=== PATIENT | female | born 1995 | race Caucasian/White ===

== ENCOUNTER 2017-02-04 | Inpatient (IN) | payer OTHER ==
--- NOTE | ~2017-02-04 | PA ---
Unit #: [id number] #: [id number] Patient: HAYDEE JENNINGS [id number] [facility] [address] [place] [address] [id number] I MR#: [id number] NAME: HAYDEE JENNINGS ROOM: P173 Age: 21 Sex: F Admission Date: 02/04/2017 : 1995 Date of Assessment: 02/04/2017 Attending Physician: Antonio Purdy M.D. Admitting Physician: Antonio Purdy M.D. Primary Care Physician: Primary Care Physician No PSYCHIATRIC ASSESSMENT INFORMANTS The patient reliability, fair; chart reliability, good. CHIEF COMPLAINT Suicidal ideation. Suicidal attempt by taking an overdose. HISTORY OF PRESENT ILLNESS Ms. Haydee Jennings is a 21-year-old morbidly obese, white female, seen on 02/04/2017. The patient presented by taking 20 to 30 Coreg 12.5 mg tablets in a suicide attempt. The patient reported that she is impulsive and has previous multiple attempts like this. The patient currently denied any suicidal or homicidal ideation. Able to contract for safety at this time. The patient reported that she was released yesterday from the hospital in [place] for suicidal ideation. The patient reported that she smokes a gram of cannabis. The patient reported the last use was a week ago. The patient denied any homicidal ideation, reported stressed about of her grandmother. The patient needed inpatient admission at this time for psychiatric stabilization. PAST PSYCHIATRIC HISTORY Remarkable for history of multiple admissions in the past for suicide attempt like this, [place], [place]; [facility]. FAMILY HISTORY AND SOCIAL HISTORY The patient has a good support system from a friend and family. No known history of any abuse. MEDICAL HISTORY Remarkable for history of obesity, atrial fibrillation, hypothyroidism, CHF, type 2 diabetes mellitus. Musculoskeletal; muscle strength and tone, no atrophy or abnormal movement. Gait, normal. MEDICATION HISTORY The patient is on Topamax 50 mg b.i.d., Neurontin 300 mg three times a day, Flexeril 10 mg three times a day, metformin 500 mg in the morning, Lovenox 40 mg in the morning, Haldol 10 mg b.i.d., Coreg 12.5 mg b.i.d., Depakote 500 mg b.i.d. ALLERGIES No known drug allergies. Unit #: [id number] #: [id number] Patient: HAYDEE JENNINGS SUBSTANCE ABUSE HISTORY Remarkable for history of tobacco use, age of onset 11; marijuana, age of onset 11. No history of blackout. No history of any HIV, hepatitis, withdrawal symptom or any IV drug use. REVIEW OF SYSTEMS HEENT: Eyes, clear. Ears, nose, mouth, and throat; clear. CARDIOVASCULAR: Unremarkable. RESPIRATORY: Unremarkable. GI: Unremarkable. : Unremarkable. SKIN: Unremarkable. LYMPH NODE: Unremarkable. NEUROLOGIC: Unremarkable. ENDOCRINE: Unremarkable. HEMATOLOGIC: Unremarkable. ALLERGIC/IMMUNOLOGIC: Unremarkable. MUSCULOSKELETAL: Muscle strength and tone, no atrophy or abnormal movement. Gait normal. MENTAL STATUS EXAMINATION CONSTITUTIONAL: Measurement of vital signs; temperature 97.9, heart rate 84, respiratory rate 17, and blood pressure 110/64. Height 5 feet 8 inches, weight 339 pounds. GENERAL APPEARANCE: The patient dressed casually. The patient did not show any facial deformity except morbid obesity. MUSCULOSKELETAL: Please see above. PSYCHIATRIC EXAMINATION Description of speech; regular rate, normal volume, normal articulation, coherent, and spontaneous. Description of thought process, goal directed. Description of association, intact. Description of abnormal psychotic thinking; the patient denied any hallucination or delusions, but mood lability. The patient is able to contract for safety at this time. Denied any suicidal or homicidal ideation at this time. Description of the patient's judgment, concerning everyday activity, poor; social situation, poor; concerning psychiatric condition, poor. Complete mental status examination; oriented in time, place, and person. Recent and remote memory, fair. Attention and concentration, fair. Language, able to name object and repeat phrases. Fund of knowledge, aware of current event and passive vocabulary intact. Mood and affect, sad and dysphoric. Insight and judgment, fair to poor. ASSETS AND LIABILITIES ASSETS; the patient is articulate, able to take care of her ADL. Liability, history of depression, ADMITTING DIAGNOSES Psychiatric: Mood disorder, not otherwise specified, F32.9; cannabis abuse, moderate, F12.20. Secondary diagnosis: Borderline personality disorder. Medical diagnosis: Morbid obesity, atrial fibrillation, hypothyroidism, congestive heart failure, type 2 diabetes mellitus. Stressors: Psychosocial stressors. Unit #: [id number] #: [id number] Patient: HAYDEE JENNINGS PSYCHIATRIC PLAN AND TREATMENT GOAL AND DISCHARGE PLAN 1. Advised to admit the patient on the inpatient unit. Provide safe, supportive, and structured environment. 2. Ordered labs; CBC, CMP. 3. Advised to resume home medication if needed. Consider further adjustment of medication. The patient at this time denied any suicidal or homicidal ideation. We will try to monitor and give the hospital stay as short as possible with a plan to discharge the patient home next week and also making sure the patient is supervised closely. In the meantime, continue the patient to attend all the programing group therapy, individual therapy, medication management, treatment goal to attain, euthymic mood, gain insight into her problem, and learn coping skills. DISCHARGE PLAN Plan to stabilize the patient and consider followup in outpatient program. Estimated length of stay is three to five days. Dictated by... Antonio Purdy M.D. HUNG/more TD: 02/05/2017 09:05 JOB #: [id number] PSYCHIATRIC ASSESSMENT Page 1 of 1 X Antonio Purdy MD X PSYCHIATRIC ASSESSMENT
--- NOTE | ~2017-02-04 | DS ---
Unit #: [id number] #: [id number] Patient: THUAN JENNINGS [id number] [facility] [address] [place] [address] [id number] MR#: [id number] NAME: THUAN JENNINGS ROOM: 73 Age: 21 Sex: F Admission Date: 02/04/2017 : 1995 Discharge Date: 02/05/2017 Attending Physician: Antonio Purdy M.D. Primary Care Physician: Primary Care Physician No DISCHARGE SUMMARY REASON FOR ADMISSION Depression and suicidal ideation. DIAGNOSTIC STUDIES LABORATORY RESULTS: Unremarkable. HOSPITAL COURSE The patient was admitted to inpatient unit on 02/04/2017 and discharged on 02/05/2017. The patient was treated with expressive therapy, medication management, and structured milieu. The patient denied any suicidal or homicidal ideation. The patient maintained safe behavior during stay. Subsequently, the patient was discharged with a plan to follow up in outpatient clinic. The patient was not given any prescription. The patient has medication at home on Haldol 10 mg b.i.d. for mood stabilization and psychosis, Depakote 500 mg b.i.d. for mood stabilization. DISCHARGE DIAGNOSES Psychiatric: 1. Mood disorder, not otherwise specified, F32.9. 2. Cannabis abuse, moderate, F12.20. Secondary diagnosis: Borderline personality disorder. Medical diagnoses: Morbid obesity, atrial fibrillation, hypothyroidism, congestive heart failure, type 2 diabetes mellitus. Stressors: Psychosocial stressor. DISCHARGE INSTRUCTIONS The patient to follow up in outpatient clinic as per socially responsible investment adviser. CONDITION ON DISCHARGE The patient was pleasant and cooperative. Denied any psychotic symptom or any suicidal ideation. PROGNOSIS Guarded. DIET AND ACTIVITY As tolerated. Dictated by... Antonio Purdy M.D. Unit #: [id number] #: [id number] Patient: THUAN JENNINGS SZC/modl TD: 02/06/2017 03:37 JOB #: [id number] DISCHARGE SUMMARY Page 1 of 1 X Antonio Purdy MD X DISCHARGE SUMMARY
--- NOTE | ~2017-02-04 | HP ---
Unit #: [id number] #: [id number] Patient: THUAN JENNINGS [id number] [facility] [address] [place] [address] [id number] MR#: [id number] NAME: THUAN JENNINGS ROOM: P173 Age: 21 Sex: F Admission Date: 02/04/2017 : 1995 Attending Physician: Antonio Purdy M.D. Admitting Physician: Antonio Purdy M.D. Primary Care Physician: Primary Care Physician No HISTORY AND PHYSICAL HISTORY OF PRESENT ILLNESS The patient is a 21-year-old female who states that she is here due to suicidal ideation, attempted overdose of Coreg. PAST MEDICAL HISTORY Significant for Factor V Leiden, hypertension, congestive heart failure, hypothyroidism, atrial fibrillation, and PCOS. 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 ALLERGIES Ibuprofen, Iodine, shell fish, beef, penicillin, acetaminophen, tramadol, all antibiotics except for Rocephin. SOCIAL HISTORY Positive for smoking. FAMILY HISTORY Noncontributory. REVIEW OF SYSTEMS CONSTITUTIONAL: No fever or chills. HEENT: Denies any sore throat, ear pain or runny nose. CARDIOVASCULAR: Denies chest pain, irregular heart rhythm or palpitations. CHEST: Denies shortness of breath or cough. No hemoptysis. GASTROINTESTINAL: Denies nausea, vomiting, diarrhea or chronic constipation. ENDOCRINE: Denies history of increased thirst or urination. No recent significant weight loss or gain. GENITOURINARY: Denies dysuria, frequency, or hematuria. SKIN: Denies any rashes. HEMATOLOGIC: Denies history of increased bleeding or bruising. MUSCULOSKELETAL: Denies any hot, swollen joints. No generalized muscle pain. NEUROLOGIC: Denies problems with vision or speech. No frequent, severe headaches. No numbness, tingling or weakness in any extremities. Denies loss of bladder or bowel control. CURRENT MEDICATIONS 1. Lovenox 40 mg subcu q.24h 2. ProAir inhaler two puffs q.6h p.r.n. shortness of air 3. Divalproex 500 mg p.o. twice daily Unit #: [id number] #: [id number] Patient: THUAN JENNINGS 4. Cyclobenzaprine 10 mg p.o. three times daily p.r.n. spasms 5. Haloperidol 10 mg p.o. twice daily 6. Gabapentin 300 mg p.o. three times daily 7. Topiramate 50 mg p.o. twice daily 8. Metformin 500 mg p.o. daily 9. Warfarin currently on hold 10. Carvedilol 12.5 mg p.o. twice daily 11. Pantoprazole 40 mg p.o. twice daily PHYSICAL EXAMINATION GENERAL: Alert, oriented, and no acute distress. VITAL SIGNS: Heart rate 94, respirations 16, blood pressure 124/69. HEIGHT: 5 feet 8 inches. WEIGHT: 339 pounds. SKIN: Warm and dry without rash or lesion. Multiple stretch davis especially in the abdomen. HEENT: Normocephalic. TMs not viewed. Oral and nasal passages clear. Conjunctivae clear. PERRLA. EOMs intact. NECK: Supple without lymphadenopathy or thyromegaly. HEART: Regular rate and rhythm without murmur. LUNGS: Clear. ABDOMEN: Soft, nontender. : Not done. EXTREMITIES: No evidence of cyanosis, clubbing or edema. Moves all without focal deficit. NEUROLOGICAL: Grossly within normal limits. Cranial Nerves: II: Visual spence are intact. III, IV AND : Extraocular movements are intact. Pupils are equal, round and reactive to light. V: Facial sensation is grossly normal. VII: Facial movements and expression are normal. VIII: Auditory acuity grossly intact. IX, X: Uvula is midline. Phonation is normal. XI: Patient shrugs shoulders and turns head normally. XII: Tongue protrudes in the midline. Sensory and Motor Function: Sensory and motor sensation is grossly normal. Motor: moves all extremities well. Coordination: Gait is normal. Deep Tendon Reflexes: Intact. IMPRESSION Psychiatric admission. RECOMMENDATIONS Psychiatric, per psychiatrist. MEDICAL No contraindications to participating in facility's activities. MEDICAL PROGNOSIS Good. Dictated by... Nando Holloway/sarah Unit #: [id number] #: [id number] Patient: THUAN JENNINGS TD: 02/05/2017 12:34 JOB #: [id number] HISTORY AND PHYSICAL Page 1 of 1 X Liz Dejesus APR HISTORY AND PHYSICAL
[2017-02-04 19:24] LABS: INR 1.1; PROTHROMBIN TIME (PATIENT) 11.4 SECONDS (9.6-11.5)
== END 2017-02-05 09:57 | disposition home or self-care (01) | DRG 885 ==
LOC: P1E 09:03
PROVIDERS: Psychiatry & Neurology Psychiatry
DX: F39 Unspecified mood [affective] disorder (principal); D68.51 Activated protein C resistance; E66.01 Morbid (severe) obesity due to excess calories; I48.91 Unspecified atrial fibrillation; I50.9 Heart failure, unspecified; R45.851 Suicidal ideations; F32.9 Major depressive disorder, single episode, unspecified; F12.20 Cannabis dependence, uncomplicated; F60.3 Borderline personality disorder; E03.9 Hypothyroidism, unspecified; E11.9 Type 2 diabetes mellitus without complications; E28.2 Polycystic ovarian syndrome; Z88.6 Allergy status to analgesic agent; Z88.0 Allergy status to penicillin; Z88.8 Allergy status to other drugs, medicaments and biological substances; F17.210 Nicotine dependence, cigarettes, uncomplicated
CPT/HCPCS: 82947; 85610; J1650